=== PATIENT | male | born 1960 | race Caucasian/White ===

== ENCOUNTER 2017-03-27 22:22 | Emergency (ER) | payer OTHER ==
[~2017-03-27] VITALS: Ht 172.7 cm; Wt 81.0 kg
[2017-03-27] MEDS ORDERED: IBUP200C5 PO (22:33)
[2017-03-27] MEDS ORDERED: SODIUM CHLORIDE 0.9% 1,000ML IVBOLUS ONE (23:00)
[2017-03-27] MEDS ORDERED: SODIUM CHLORIDE FLUSH 10ML SYR IVF ONE (23:00)
[2017-03-27 23:17] LABS: ALBUMIN 3.4 g/dL (3.4-5.0); ANION GAP 8 mmol/L (5-15); CALCIUM 8.6 mg/dL (8.5-10.1); CHLORIDE 103 mmol/L (98-107); CREATININE 1.31 mg/dL (0.7-1.3)
[2017-03-27 23:20] LABS: MEAN CORPUSCULAR HEMOGLOBIN 33.2 pg (27.5-34.5); MEAN CORPUSCULAR HGB CONC 34.2 g/dL (33.2-36.2); MEAN CORPUSCULAR VOLUME 97.2 fL (81-97); MEAN PLATELET VOLUME 8.1 fL (7.4-10.4); PLATELET COUNT 200 x10^3/uL (130-400); RED BLOOD COUNT 4.05 x10^6/uL (4.38-5.82); RED CELL DISTRIBUTION WIDTH 12.7 % (9.4-14.8)
[2017-03-27 23:38] LABS: MD YES
[2017-03-27 23:39] LABS: BAND#(MANUAL) 1.43 x10^3/uL; BANDS%(MANUAL) 11 % (0-7); LYMPH#(MANUAL) 0.52 x10^3/uL (1-3.4); LYMPHS% (MANUAL) 4 % (22-44); MONOS#(MANUAL) 1.43 x10^3/uL (0.3-2.7); MONOS% (MANUAL) 11 % (2-9); SEG#(MANUAL) 9.62 x10^3/uL (1.8-6.8); SEGS% (MANUAL) 74 % (42-75)
[2017-03-27 23:40] LABS: <PLATELET ESTIMATE> ADEQUATE; <RBC MORPHOLOGY> NORMAL; LARGE PLATELETS 1+
[2017-03-28 00:42] LABS: MICROSCOPIC INDICATED
[2017-03-28 00:49] LABS: CULTURE INDICATED? NO
[2017-03-28] MEDS ORDERED: LEVOFLOXACIN 750 MG TABLET PO ONE (01:30)
[2017-03-28] MEDS ORDERED: LEVOFLOXACIN 750 MG TABLET ONE (01:35)
[2017-03-28 01:38] VITALS: BP 88/54
== END 2017-03-28 01:56 | disposition home or self-care (01) ==
LOC: ED 23:59
DX: J15.9 Unspecified bacterial pneumonia (principal); D72.825 Bandemia; R94.4 Abnormal results of kidney function studies
CPT/HCPCS: 36415; 71020; 80048; 80307; 81001; 82040; 85025; 93005; 96360; 96361; 99285; J7030; G0479